=== PATIENT | female | born 1970 | race Caucasian/White ===

== ENCOUNTER 2018-09-09 11:51 | Emergency (ER) | payer BC, MEDICAID, OTHER ==
[2018-09-09 12:40] VITALS: BP 144/80
--- NOTE | 2018-09-09 15:05 | UC ---
Respiratory Complaint HPI - HPI Summary HPI Summary: 47 yo female with nasal congestion/post nasal drip/ and otalgia (R) x 3 days no f/c worried because she has to make a flight tonight - History of Current Complaint Chief Complaint: UCGeneralIllness Stated Complaint: SINUS,RIGHT EAR COMPLAINT Time Seen by Provider: 09/09/18 14:32 Hx Obtained From: Patient Hx Last Menstrual Period: 07/2018 Onset/Duration: Gradual Onset, Lasting Days Timing: Constant Severity Initially: Mild Severity Currently: Mild Pain Intensity: 2 Pain Scale Used: 0-10 Numeric Character: Cough: Nonproductive Aggravating Factors: Nothing Alleviating Factors: Nothing Associated Signs And Symptoms: Positive: URI, Nasal Congestion - Allergies/Home Medications Allergies/Adverse Reactions: Allergies Allergy/AdvReac Type Severity Reaction Status Date / Time cephalexin [From Keflex] Allergy Hives Verified 09/09/18 12:33 Home Medications: Home Medications Escitalopram Oxalate [Lexapro 10 mg] 10 mg PO DAILY 09/09/18 [History Confirmed 09/09/18] Multivitamins/Minerals TAB* [Theragran/minerals TAB*] 1 tab PO DAILY 09/09/18 [ History Confirmed 09/09/18] Phenylephrine/Acetaminophn/Cpm [Nighttime Sinus Congestio] 1 tab PO ONCE [History Confirmed 09/09/18] PMH/Surg Hx/FS Hx/Imm Hx Previously Healthy: Yes - Surgical History Surgical History: Yes Surgery Procedure, Year, and Place: L meniscus repair. x2. gastric bypass. appy - Family History Known Family History: Positive: Hypertension - Social History Alcohol Use: None Substance Use Type: None Smoking Status (MU): Never Smoked Tobacco Review of Systems All Other Systems Reviewed And Are Negative: Yes Constitutional: Positive: Negative Skin: Positive: Negative Eyes: Positive: Negative ENT: Positive: Ear Ache, Nasal Discharge, Sinus Congestion, Sinus Pain/ Tenderness Respiratory: Positive: Cough Cardiovascular: Positive: Negative Gastrointestinal: Positive: Negative Genitourinary: Positive: Negative Motor: Positive: Negative Neurovascular: Positive: Negative Musculoskeletal: Positive: Negative Neurological: Positive: Negative Psychological: Positive: Negative Physical Exam Triage Information Reviewed: Yes Appearance: Well-Appearing, No Pain Distress, Well-Nourished Vital Signs: Initial Vital Signs Temp 97.9 F 09/09/18 12:34 Pulse 59 01/02/19 12:34 Resp 16 09/09/18 12:34 BP 144/80 09/09/18 12:34 Pulse Ox 99 09/09/18 12:34 Vital Signs Reviewed: Yes Eyes: Positive: Conjunctiva Clear ENT: Positive: Hearing grossly normal, Nasal congestion, Nasal drainage, Uvula midline. Negative: TMs normal - both retracted/cerumen both EACs, Tonsillar swelling, Tonsillar exudate, Trismus, Muffled voice, Hoarse voice, Dental tenderness, Sinus tenderness Neck: Positive: Supple, Nontender Respiratory: Positive: Chest non-tender, Lungs clear, Normal breath sounds Cardiovascular: Positive: RRR, No Murmur Musculoskeletal: Positive: ROM Intact, No Edema Neurological: Positive: Alert Psychological Exam: Normal Skin Exam: Normal UC Diagnostic Evaluation - Laboratory O2 Sat by Pulse Oximetry: 99 - normal/not hypoxic Respiratory Course/Dx - Differential Dx/Diagnosis Provider Diagnosis: Rhinosinusitis, Serous otitis media, Elevated blood-pressure reading, without diagnosis of hypertension Discharge - Sign-Out/Discharge Documenting (check all that apply): Patient Departure All imaging exams completed and their final reports reviewed: No Studies - Discharge Plan Condition: Stable Disposition: HOME Prescriptions: Amoxicillin PO (*) [Amoxicillin 875 MG (*)] 875 mg PO BID #14 tab Fluticasone NASAL SPRAY 50MCG* [Flonase NASAL SPRAY 50MCG*] 2 spray BOTH NARES BID #1 btl Patient Education Materials: Rhinosinusitis (ED), Serous Otitis Media (ED) Referrals: Husam Parnell [Primary Care Provider] - Additional Instructions: recheck for new or worsening symptoms AFRIN nasal spray 2 sprays each nostril 3x day for 3 days - Billing Disposition and Condition Condition: STABLE Disposition: Home
== END 2018-09-09 15:11 | disposition home or self-care (01) ==
LOC: UCCORT 11:51
DX: J32.9 Chronic sinusitis, unspecified (principal); H65.90 Unspecified nonsuppurative otitis media, unspecified ear; R03.0 Elevated blood-pressure reading, without diagnosis of hypertension; Z88.1 Allergy status to other antibiotic agents
CPT/HCPCS: 99212; G0463

== ENCOUNTER 2019-09-13 12:36 | Emergency (ER) | payer BC, OTHER | END 2019-09-13 12:47 | disposition left against medical advice (07) | LOC: UCCORT 12:36 | DX: Z53.21 Procedure and treatment not carried out due to patient leaving prior to being seen by health care provider (principal) ==